=== PATIENT | male | born 1950 | race Caucasian/White ===

== ENCOUNTER → 2024-05-11 06:42 | Outpatient (REF) | payer MEDICARE, SELFPAY | LOC: MRI 06:42 | PROVIDERS: ATTENDING PHYSICIAN Physical Medicine & Rehabilitation; FAMILY PHYSICIAN Family Medicine | DX: M43.16 Spondylolisthesis, lumbar region (principal); M48.07 Spinal stenosis, lumbosacral region; M41.50 Other secondary scoliosis, site unspecified; M43.17 Spondylolisthesis, lumbosacral region | CPT/HCPCS: 72148 ==

== ENCOUNTER 2025-03-18 19:08 | Emergency (ER) | payer MEDICARE, SELFPAY ==
[2025-03-18 19:24] VITALS: BP 146/105
[2025-03-19 00:33] VITALS: BP 166/92
--- NOTE | 2025-03-19 01:25 | ED.GENMED ---
History of Present Illness
General
Chief Complaint: Skin Problem
Source: patient
Exam Limitations: none
Time Seen by Provider: 03/19/25 01:17
Nursing documentation reviewed up to this point in time: agreed with
History of Present Illness
History of Present Illness:
see MDM
Past History
Past History
ED Past Medical History: None
ED Past Surgical History: None
Social History
Living: with family
Review of Systems
Review of Systems
Allergies reviewed?: Yes
All Other Systems: Not applicable
Phy Exam
Physical Exam
Physical Exam:
GENERAL: Alert , in no apparent distress
CARDIAC: Regular rate and rhythm . 2+ radial pulse
LUNGS: Clear breath sounds bilaterally, no acute respiratory distress, no wheezes/rales/rhonchi
NEUROLOGICAL: Alert and oriented, no focal neuro deficits
SKIN: Warm and dry,
Surgical incision on the palm of the right hand with dehiscence approximately measuring 2-1/2 cm, the length of the incision, all sutures were removed, no drainage, clean base of the wound
MUSCULOSKELETAL: Open incision in the palm, full range of motion of the wrist, neurovascularly intact, no tenderness to the upper extremity
PSYCH: Normal and appropriate interaction.
Course
Vital Signs
Initial and Last Documented VS:
Initial Vital Signs
Temp Pulse Resp BP Pulse Ox
36.5 C 74 18 146/105 98
03/18/25 19:24 03/18/25 19:24 03/18/25 19:24 03/18/25 19:24 03/18/25 19:24
Last Documented Vital Signs
Temp Pulse Resp BP Pulse Ox
36.5 C 71 18 166/92 98
03/18/25 19:24 03/19/25 00:33 03/19/25 00:33 03/19/25 00:33 03/19/25 01:28
MDM/Problems Addressed
Differential Diagnosis Includes:
see MDM
MDM/Problems Addressed:
Note:
CHIEF COMPLAINT(S)
The patient presented after experiencing a fall that affected the site of recent hand surgery, leading to concerns about wound closure.
HISTORY OF PRESENT ILLNESS
The [id number] y/o , a male, recently underwent a hand surgery for carpal tunnel syndrome [address] granda plastic surgeon. Today, the patient experienced a fall that impacted the surgical site. Post-fall, the patient noted the wound
appeared to have opened, prompting concern. The patient states that pain at the site is very mild. The patient attempted to contact the surgeon, but was unable to reach him directly. Prior to the fall, the patient had a follow-up with the surgeon
this morning where the wound was described as 'beautiful' and fully closed. The patient is currently taking blood thinners, specifically Elequis, for a deep vein thrombosis diagnosed approximately a year and a half ago as of August 25. The patient
did not experience head trauma and reports the primary symptom post-fall is soreness at the feet.
no numbness/tingling/weakness
able to move the wrist
PAST MEDICAL AND SURGICAL HISTORY
The patient has a history of deep vein thrombosis and is on anticoagulation therapy. Recent surgical history includes carpal tunnel surgery performed last .
CHRONIC MEDICAL CONDITIONS SIGNIFICANTLY AFFECTING CARE
The patient has a history of deep vein thrombosis, currently managed with blood thinners.
MEDICATIONS
The patient is currently taking Elequis for deep vein thrombosis management.
PHYSICAL EXAM
- Nursing notes reviewed and vital signs reviewed.
see above
PLAN
- Attempt to contact the patients surgeon directly to discuss wound management and potential need for reclosure.
- Evaluate the need for further wound care management in the emergency department.
- Monitor the patient for signs of excessive bleeding or further complications due to anticoagulant use.
DIFFERENTIAL DIAGNOSIS
The Differential Diagnosis includes, in no particular order and is not limited to:
1. Wound dehiscence
2. Infection at surgical site
3. Hematoma
4. Superficial wound contamination
5. Post-surgical hematoma secondary to anticoagulation
6. Soft tissue injury from the fall
7. Nerve injury associated with carpal tunnel surgery
8. Non-displaced fracture of the wrist or carpal bones
9. Tendonitis due to fall impact
10. Bruising or contusion of hand and adjacent areas.
74 y.o M
on eliquis
mech trip and fll onto R hand and opened R incision from carpal tunnel surgery 4 day ago
no new numbness/tingling/weakness
on exam pt still has 1 subcuticular suture sticking out but the woun is mostly dehisced approx 2.5 cm to subcutaneous layer
it was irrigated and closed loosely with sutures
i reached out to dr. jeffers who agreed with this plan
pt should see him today or tomorrow for wound check
replaed his splint with a new fiberglass slab on the palm to keep it immobilized.
*Pulse Oximetry
SaO2: 98
Oxygen Mode of Delivery: Room air
Patient hypoxic: no (98)
*Critical Care Note
Total Time (30-74mins, 75-104mins- exclusive of procedures): Not Applicable
Comment
Comment:
appreciate pt's bp was elevated
the most recent BP was takin whlie pt was standing, with his coat on, with the cuff on his forearm
he din't take his meds tonight
has noheadache, cp, blurry vision, sob
probably situational
ED Attending Note
-
Portions of this chart may have been created with voice recognition software.� Occasional wrong word or��sound alike� substitutions may have occurred due to the inherent limitations of voice recognition software.
Discharge Plan
Departure
Patient Disposition: Home (Routine Discharge)
Date of Disposition: 03/19/25
Time of Disposition: 02:11
Patient with high blood pressure during this ER visit?: Yes
Condition: Fair
Covid-19: Not Applicable
Discharge Problem:
Dehiscence of wound
Instructions: Wound Care (DC)
Prescriptions:
No Action
AVODART
0.4 mg PO DAILY
lysine [L-Lysine] 500 MG capsule
500 mg PO DAILY
ascorbic acid (vitamin C) [Vitamin C] 500 MG capsule, extended release
500 mg PO DAILY
Inositol
PO BID
Vitamin B Comp With Vit C No.6
100 mg PO DAILY
Eliquis 5 mg tablet
5 mg PO BID Qty: 74 0RF
Rx Instructions:
10mg PO bid x 7d then 5mg PO bid
Referrals:
UNKNOWN - PT DOES,NOT KNOW [Family Provider]
Activity Restrictions/Additional Instructions:
I placed Prolene sutures in your incision to loosely approximate this. You have a small dissolvable suture still visible. I did not clip this out. Please call Dr. Jeffers in the morning and have him take a look at the wound either today or
tomorrow. Return for any concerns.
Interventions
Interventions:
*General Assessment Last Done: 03/18/25 19:24
*Neglect/Abuse Screening Last Done: 03/18/25 19:24
*ED COVID-19 Vaccine History Last Done: 03/18/25 19:24
*ED Influenza Vaccine History Last Done: 03/18/25 19:24
[facility] Risk Assessment Tool Last Done: 03/18/25 23:14
*Risk Screen - Suicide (C-SSRS) Last Done: 03/18/25 19:28
*Nursing Disposition Last Done: 03/19/25 02:16
ED-Skin Assessment Last Done: 03/18/25 20:33
Discharge Date and Time
Print Language: SAUDI ARABIAN
[2025-03-19 02:16] VITALS: BP 180/107
== END 2025-03-19 02:17 | disposition home or self-care (01) ==
LOC: EMR 19:08
PROVIDERS: EMERGENCY PHYSICIAN Student in an Organized Health Care Education/Training Program
DX: T81.31XA Disruption of external operation (surgical) wound, not elsewhere classified, initial encounter (principal); Y79.3 Surgical instruments, materials and orthopedic devices (including sutures) associated with adverse incidents; Z79.01 Long term (current) use of anticoagulants; Z86.718 Personal history of other venous thrombosis and embolism
CPT/HCPCS: 99282; 12001